=== PATIENT | female | born 1965 | race Caucasian/White ===

== ENCOUNTER → 2017-12-21 | Outpatient (CLI) | payer OTHER ==
[~2017-12-21] MED LIST: NUTRTAB40 PO
--- NOTE | 2017-12-21 15:00 | DIAGNOSTIC IMAGING REPORT ---
KUB HISTORY: Right upper quadrant abdominal pain R10.11 Abdominal pain, RUQ (right upper quadrant)Pt with RUQ pain COMPARISON: Chest radiographs 01/25/2014. FINDINGS: The bowel gas pattern is non-obstructive. Surgical clips project over the left pelvis. Calcifications of the pelvis suggest phleboliths. There is no organomegaly. No renal calculi. No ureteral calculi. No pneumoperitoneum or pneumatosis. No fracture. IMPRESSION: Nonobstructive bowel gas pattern. Electronically signed by: Godwin Souza M.D. 12/21/2017 2:59 PM Dictated Date/Time: 12/21/2017 2:57 PM
[2017-12-21 15:32] LABS: BASO % 0.4 %; BASO ABS # 0.03 K/uL (0-0.2); EOS % 2.8 %; EOS ABS # 0.23 K/uL (0-0.5); HEMATOCRIT 41.1 % (37-47); IG# 0.01 K/uL (0.00-0.02); LYMPH % 27.5 %; LYMPH ABS # 2.27 K/uL (1.2-3.4); MEAN CELL VOLUME 90.3 fL (80-100); MEAN CORPUSCULAR HEMOGLOBIN 30.8 pg (25-34); MEAN CORPUSCULAR HGB CONC 34.1 g/dl (32-36); MEAN PLATELET VOLUME 10.8 fL (7.4-10.4); MONO % 6.8 %; MONO ABS # 0.56 K/uL (0.11-0.59); NEUT % 62.4 %; NEUT ABS # 5.15 K/uL (1.4-6.5); PLATELET COUNT 262 K/uL (130-400); RED CELL DISTRIBUTION WIDTH CV 12.8 % (11.5-14.5); RED CELL DISTRIBUTION WIDTH SD 42.3 fL (36.4-46.3); WHITE BLOOD COUNT 8.25 K/uL (4.8-10.8)
[2017-12-21 15:45] LABS: ALBUMIN 3.9 gm/dl (3.4-5.0); ALT/SGPT 22 U/L (12-78); AST/SGOT 13 U/L (15-37); BLOOD UREA NITROGEN 15 mg/dl (7-18); CARBON DIOXIDE 28 mmol/L (21-32); CREATININE 0.99 mg/dl (0.60-1.20); GLUCOSE 127 mg/dl (70-99); POTASSIUM 4.3 mmol/L (3.5-5.1); SODIUM 137 mmol/L (136-145)
[2017-12-21 15:56] LABS: ALKALINE PHOSPHATASE 56 U/L (45-117); TOTAL PROTEIN 8.1 gm/dl (6.4-8.2)
== END | disposition home or self-care (01) ==
LOC: C.RAD1850 14:12
PROVIDERS: ATTEND Family Medicine
DX: R10.11 Right upper quadrant pain (principal); R41.3 Other amnesia